=== PATIENT | male | born 1990 | race Caucasian/White ===

== ENCOUNTER 2024-05-25 20:42 | Emergency (ER) | payer SELFPAY ==
[~2024-05-25] VITALS: Ht 172.7 cm; Wt 90.0 kg
[2024-05-25 20:50] VITALS: O2SAT 98
[2024-05-25] MEDS: KETOROLAC 15MG/ML VIAL IM ONE (21:40)
[2024-05-25] MEDS ORDERED: CEPH500T MT (22:59)
[2024-05-25] MEDS ORDERED: SULF1TAB48 MT (22:59)
[2024-05-25] MEDS ORDERED: NAPR-1176 MT (23:00)
[2024-05-25 23:05] VITALS: BP 138/81; PULSE 89; RESP 16; TEMP 98.4
== END 2024-05-25 23:08 | disposition home or self-care (01) ==
LOC: ER 20:42
DX: L03.011 Cellulitis of right finger (principal)
CPT/HCPCS: 99283; 73140; 96372; J1885